=== PATIENT | female | born 1970 ===

== ENCOUNTER → 2020-03-09 | Outpatient (CLI) | payer SELFPAY ==
[~2020-03-09] MED LIST: ACID REDUCER 1150 MG PO; ALBU90OI INH; Cinnamon500 MG PO; FLUO20 PO; FLUSAL2505 IH; LEVSOD75 PO; LISI20 PO; LISI5 PO; NAPR220 PO; ZYRTEC10 M2 PO
[2020-03-14 16:09] LABS: HPV 16 Negative (Negative); HPV 18 Negative (Negative); HPV OTHER HR TYPES Negative (Negative)
== END | disposition home or self-care (01) ==
LOC: LAB 19:14 → LAB SHORT 19:14
PROVIDERS: Internal Medicine
DX: Z01.419 Encounter for gynecological examination (general) (routine) without abnormal findings (principal)
CPT/HCPCS: 87624; G0123

== ENCOUNTER 2021-08-15 10:41 | Day surgery (SDC) | payer OTHER ==
[2021-08-14 12:27] LABS: BASOPHILS ABSOLUTE AUTO 0.02 K/mm3 (0.00-0.23); BASOPHILS PERCENT AUTO 0 % (0-2); EOSINOPHILS ABSOLUTE AUTO 0.17 K/mm3 (0.00-0.68); EOSINOPHILS PERCENT AUTO 3 % (0-6); Hematocrit 39.8 % (33.0-51.0); Hemoglobin 12.9 g/dL (11.5-16.0); IMMATURE GRAN ABSOLUTE AUTO 0.02 K/mm3 (0.00-0.10); IMMATURE GRAN PERCENT AUTO 0 % (0-1); LYMPHOCYTES ABSOLUTE AUTO 2.13 K/mm3 (0.84-5.20); LYMPHOCYTES PERCENT AUTO 32 % (21-46); MONOCYTES ABSOLUTE AUTO 0.37 K/mm3 (0.16-1.47); MONOCYTES PERCENT AUTO 6 % (4-13); Mean Corpuscular HGB 31.3 pg (26.0-34.0); Mean Corpuscular HGB Conc 32.4 g/dL (31.5-36.5); Mean Corpuscular Volume 97 fL (80-100); Mean Platelet Volume 11.4 fL (9.1-12.4); NEUTROPHILS ABSOLUTE AUTO 3.97 K/mm3 (1.96-9.15); NEUTROPHILS PERCENT AUTO 60 % (41-73); Platelet Count 213 K/mm3 (150-400); RDW Coefficient Variation 12.8 % (11.7-14.2); RDW Standard Deviation 45.8 fL (35.1-46.3); Red Blood Cell Count 4.12 M/mm3 (3.80-5.20); White Blood Cell Count 6.68 K/mm3 (4.00-11.30)
[2021-08-14 13:11] LABS: Anion Gap 7 mmol/L (6-16); Blood Urea Nitrogen 17 mg/dL (8-24); Bun/Creatinine Ratio 23.5 (12.0-20.0); CO2, Blood 23 mmol/L (21-32); Calcium, Blood 9.1 mg/dL (8.5-10.1); Chloride, Blood 107 mmol/L (98-108); Creatinine, Blood 0.72 mg/dL (0.40-1.00); Glomerular Filtration Rate >60 (60-); Glucose, Blood 90 mg/dL (70-99); Potassium, Blood 3.9 mmol/L (3.5-5.5); Sodium, Blood 137 mmol/L (136-145)
[~2021-08-15] VITALS: Ht 165.1 cm; Wt 106.0 kg
[~2021-08-15 10:41] MED LIST changes: -FLUO20 PO; +Prozac40 MG
[2021-08-15] MEDS ORDERED: FAMO20 (11:44)
[2021-08-15] MEDS ORDERED: METF500 PO (11:45)
[2021-08-15] MEDS ORDERED: IBU800 MG PO (11:45)
--- NOTE | 2021-08-15 11:47 | NUR ---
Ambulatory in Day Surgery HERE WITH DAUGHTER WALKER. History, Chart, Medications and Allergies reviewed before start of procedure. Lungs clear T/O to Auscultation. Patient confirms NPO status and agrees with scheduled surgery. Pre-Op teaching done. Pt verbalizes understanding.
[2021-08-15] MEDS ORDERED: ALBU90OI (11:55)
--- NOTE | 2021-08-15 17:39 | NUR ---
RECIEVED PATIENT FROM OR RECIEVED REPORTS FOR CARBONATING STONE CLEANERKINA COE AND ANNSTHSIOLOGIST DR COTE. 4 LAP SITES INTACT WITH SKIN GLUE.
--- NOTE | 2021-08-15 18:13 | NUR ---
CARE TURNED OVER TO Jennifer CASTANON PACU. NO CHANGE IN ASSWESSMENT.
--- NOTE | 2021-08-16 | NUR ---
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 DAUGHTER WAS WAITING IN THE E.R CHECK IN TO EMERGENCY ROOM CLERK PATIENT. VSS. NO CHEST PAIN AND DENIES SOB. AOX4. PT REPORTS MINIMAL PAIN 2/10. ABD LAP SITE ARE CDI WITH WOUND GLUE. BT PRESENT. PT TOLERATING PO INTAKE DENIES NAUSEA AND VOMITING. PT HAD A SNACK, HALF A SANDWICH AND SHARAD. AMBULATING IN THE BATHROOM INDEPENDENTLY. VOID TWICE WITHOUT ANY DIFFICULTY. TOTAL URINE OUTPUT OF 475 ML. IV ON R FOREARM AND L HAND WAS DC'D. GEETHA PADS WITH SCANT BLEEDING. DISCUSSED DISCHARGE INSTRUCTION TO PATIENT, RECEPTIVE AND UNDERSTANDS WHEN TO CALL THE DOCTOR. PT WILL F/U ON 08/26/21 W/ DR. BAIRD. PT DENIES PASSING FLATUS BUT STATED THAT SHE IS STARTING TO FEEL LIKE SHE WILL PASS GAS. REPORTS SOME INTERMITTENT MILD R SHOULDER PAIN.
--- NOTE | 2021-08-20 08:37 | NUR ---
08/20/21 0837 Bekah Miller VERIFICATIONS: EDIT CHART.
== END 2021-08-15 23:45 | disposition home or self-care (01) ==
LOC: ORSCMMR 10:41 → ORD 12:00 → ORSCMMR 12:00 → SURS 19:00 → ORSCMMR 23:45
PROVIDERS: Obstetrics & Gynecology
PROC: 0UT74ZZ Resection of Bilateral Fallopian Tubes, Percutaneous Endoscopic Approach (ICD-10-PCS; principal; 2021-08-15 12:00)
PROC: 0UT94ZZ Resection of Uterus, Percutaneous Endoscopic Approach (ICD-10-PCS; principal; 2021-08-15 12:00)
PROC: 8E0W4CZ Robotic Assisted Procedure of Trunk Region, Percutaneous Endoscopic Approach (ICD-10-PCS; principal; 2021-08-15 12:00)
DX: N92.0 Excessive and frequent menstruation with regular cycle (principal); D25.9 Leiomyoma of uterus, unspecified; R10.2 Pelvic and perineal pain; N81.2 Incomplete uterovaginal prolapse; J45.909 Unspecified asthma, uncomplicated; G47.33 Obstructive sleep apnea (adult) (pediatric); E11.9 Type 2 diabetes mellitus without complications; K21.9 Gastro-esophageal reflux disease without esophagitis; E66.01 Morbid (severe) obesity due to excess calories; Z68.38 Body mass index [BMI] 38.0-38.9, adult; Z79.899 Other long term (current) drug therapy
CPT/HCPCS: 58573; S2900; 36415; 80048; 82947; 84703; 85025; 86850; 86900; 86901; 88307; A9270; J0690; J1100; J1885; J2250; J2370; J2405; J2704; J3010; J7120

== ENCOUNTER 2021-09-05 20:39 | Emergency (ER) | payer OTHER ==
[~2021-09-05] VITALS: Ht 165.1 cm; Wt 106.1 kg
[~2021-09-05 20:39] MED LIST changes: +ALBU90OI; +FAMO20; +IBU800 MG PO; +METF500 PO
[2021-09-05 21:15] LABS: BASOPHILS ABSOLUTE AUTO 0.02 K/mm3 (0.00-0.23); BASOPHILS PERCENT AUTO 0 % (0-2); EOSINOPHILS ABSOLUTE AUTO 0.43 K/mm3 (0.00-0.68); EOSINOPHILS PERCENT AUTO 6 % (0-6); Hematocrit 39.2 % (33.0-51.0); Hemoglobin 13.1 g/dL (11.5-16.0); IMMATURE GRAN ABSOLUTE AUTO 0.03 K/mm3 (0.00-0.10); IMMATURE GRAN PERCENT AUTO 0 % (0-1); LYMPHOCYTES ABSOLUTE AUTO 2.62 K/mm3 (0.84-5.20); LYMPHOCYTES PERCENT AUTO 34 % (21-46); MONOCYTES ABSOLUTE AUTO 0.45 K/mm3 (0.16-1.47); MONOCYTES PERCENT AUTO 6 % (4-13); Mean Corpuscular HGB 31.6 pg (26.0-34.0); Mean Corpuscular HGB Conc 33.4 g/dL (31.5-36.5); Mean Corpuscular Volume 95 fL (80-100); Mean Platelet Volume 11.5 fL (9.1-12.4); NEUTROPHILS ABSOLUTE AUTO 4.24 K/mm3 (1.96-9.15); NEUTROPHILS PERCENT AUTO 54 % (41-73); Platelet Count 199 K/mm3 (150-400); RDW Coefficient Variation 12.7 % (11.7-14.2); Red Blood Cell Count 4.14 M/mm3 (3.80-5.20); White Blood Cell Count 7.79 K/mm3 (4.00-11.30)
[2021-09-05 21:31] LABS: Source, Urine Clean Catch
[2021-09-05 21:35] LABS: Alanine Aminotransfer (ALT/SGP 27 U/L (12-78); Albumin, Blood 3.9 g/dL (3.4-5.0); Alk Phos 95 U/L (50-136); Anion Gap 8 mmol/L (6-16); Aspartate Aminotrans (AST/SGOT 16 U/L (12-37); Bilirubin, Total 0.2 mg/dL (0.1-1.0); Blood Urea Nitrogen 15 mg/dL (8-24); Bun/Creatinine Ratio 19.2 (12.0-20.0); CO2, Blood 23 mmol/L (21-32); Calcium, Blood 9.4 mg/dL (8.5-10.1); Chloride, Blood 109 mmol/L (98-108); Creatinine, Blood 0.78 mg/dL (0.40-1.00); Globulin, Blood 4.1 g/dL (2.2-4.0); Glomerular Filtration Rate >60 (60-); Glucose, Blood 82 mg/dL (70-99); Potassium, Blood 3.8 mmol/L (3.5-5.5); Sodium, Blood 140 mmol/L (136-145)
[2021-09-05 21:40] LABS: Bilirubin, Urine Neg (Neg); Blood, Urine 5+ (Neg); Glucose Qualitative, Urine Neg (Neg); Ketones, Urine Neg (Neg); Leukocyte Esterase, Urine Neg (Neg); Nitrite, Urine Neg (Neg); Protein, Urine Neg (Neg); Urobilinogen, Urine NORM (Normal)
[2021-09-05 21:54] LABS: Appearance, Urine Clear (Clear); Color, Urine Yellow (P-Yellow)
[2021-09-05 22:02] LABS: Bacteria Mod /hpf; Red Blood Cells, Urine 0-2 /hpf (0-2); Squamous Epithelial Cells Few /hpf (Few); White Blood Cells, Urine Rare /hpf (0-5)
== END 2021-09-06 00:14 | disposition home or self-care (01) ==
LOC: ER 20:39
PROVIDERS: Physician Assistant
DX: G89.18 Other acute postprocedural pain (principal); R10.9 Unspecified abdominal pain; Z88.8 Allergy status to other drugs, medicaments and biological substances; Z79.899 Other long term (current) drug therapy; Z79.84 Long term (current) use of oral hypoglycemic drugs; J45.909 Unspecified asthma, uncomplicated; I10 Essential (primary) hypertension
CPT/HCPCS: 36415; 76830; 76856; 80053; 81001; 85025; 87086; 96374; 99284-25; J1885

== ENCOUNTER → 2023-07-09 | Outpatient (CLI) | payer OTHER ==
[2023-07-09 14:01] LABS: Free Thyroxine 0.95 ng/dL (0.70-1.60); Thyroid Stimulating Hormone 2.13 uIU/mL (0.360-4.800)
[2023-07-10 10:12] LABS: HIV AB/P24 AG SCREEN Non Reactive (Non Reactive)
== END | disposition home or self-care (01) ==
LOC: LAB SHORT 11:50 → LAB 11:50
PROVIDERS: Family Medicine
DX: Z11.4 Encounter for screening for human immunodeficiency virus [HIV] (principal); E03.9 Hypothyroidism, unspecified
CPT/HCPCS: 84439; 84443; 87389

== ENCOUNTER → 2024-04-06 | Outpatient (CLI) | payer OTHER ==
[2024-04-06 19:52] LABS: Alanine Aminotransfer (ALT/SGP 19 U/L (12-78); Alk Phos 97 U/L (50-136); Anion Gap 8 mmol/L (3-11); Aspartate Aminotrans (AST/SGOT 19 U/L (12-37); Bilirubin, Total 0.2 mg/dL (0.1-1.0); Blood Urea Nitrogen 32 mg/dL (8-24); Bun/Creatinine Ratio 35.3 (12.0-20.0); CHOL/HDL RATIO 3.3; CO2, Blood 26 mmol/L (21-32); Calcium, Blood 9.1 mg/dL (8.5-10.1); Chloride, Blood 106 mmol/L (98-108); Cholesterol 187 mg/dL (50-200); Creatinine, Blood 0.91 mg/dL (0.40-1.00); Globulin, Blood 3.9 g/dL (2.2-4.0); Glomerular Filtration Rate 76 (60-); Glucose, Blood 97 mg/dL (70-99); HDL Cholesterol 56 mg/dL (>39); LDL/HDL RATIO 1.9; Low Density Lipoprotein Chol 105 mg/dL (0-110); Potassium, Blood 4.2 mmol/L (3.5-5.5); Sodium, Blood 136 mmol/L (136-145); Total Protein, Blood 7.9 g/dL (6.4-8.2); Triglycerides 132 mg/dL (30-160); Very Low Density Lipoprot Chol 26 mg/dL (6-32)
== END | disposition home or self-care (01) ==
LOC: LAB SHORT 18:45 → LAB 18:45
PROVIDERS: Family Medicine
DX: E03.9 Hypothyroidism, unspecified (principal); E66.09 Other obesity due to excess calories; R73.03 Prediabetes; Z68.34 Body mass index [BMI] 34.0-34.9, adult
CPT/HCPCS: 80053; 80061; 84443